=== PATIENT | male | born 1995 | race American Indian/Alaskan Native ===

== ENCOUNTER 2020-07-23 07:15 | Emergency (ER) | payer SELFPAY ==
[2020-07-23] MEDS ORDERED: PHENYTOIN 100 MG CAPSULE.ER PO ONE ×2 (07:30→09:00)
--- NOTE | 2020-07-23 07:36 | Emergency Department Report ---
HPI - General Chief Complaint: Seizure Time Seen by Provider: 07/23/20 07:22 - HPI HPI: This is a 25-year-old -[place] male presents to the emergency department via EMS from home with a complaint of having a seizure this morning and being out of his seizure and bipolar disorder medications. Initially he says that he has been out of the medications for the past 2 to 3 months, but then later corrects himself and says that it has been a few weeks. He usually follows up with [facility] and has never been to our facility previously. At this time he just complains of a mild headache. He denies any tobacco or illicit drug use. He has not taken anything for his symptoms prior to presentation. Despite being out of his bipolar medication the patient denies any current hallucinations or any suicidal homicidal ideations. The patient does not remember the doses of his medications that he takes. He says that he takes Dilantin for his seizures. The headache is currently 3 out of 10 in intensity and generalized. He denies any fever, vision change, slurred speech, neck stiffness, numbness or paresthesias, localized weakness, or any neurological deficits. ED Past Medical Hx - Past Medical History Previous Medical History?: Yes Hx Seizures: Yes Hx Psychiatric Treatment: Yes (bipolar) Hx Asthma: Yes - Social History Smoking Status: Current Every Day Smoker - Medications Home Medications: Home Medications Medication Instructions Recorded Confirmed Last Taken Type Phenytoin [Dilantin] 100 mg PO Q8HR #90 capsule 07/23/20 Unknown Rx ED Review of Systems ROS: Stated complaint: HEADACHE/FALL Other details as noted in HPI Comment: All other systems reviewed and negative Constitutional: denies: chills, fever Eyes: denies: eye pain, vision change ENT: denies: ear pain, throat pain Respiratory: denies: cough, shortness of breath Cardiovascular: denies: chest pain, palpitations Gastrointestinal: denies: abdominal pain, vomiting Genitourinary: denies: dysuria, discharge Musculoskeletal: denies: back pain, arthralgia Skin: denies: rash, lesions Neurological: headache. denies: numbness, paresthesias Physical Exam - Physical Exam Physical Exam: GENERAL: The patient is well-developed well-nourished. HENT: Normocephalic. Atraumatic. Patient has moist mucous membranes. EYES: Extraocular motions are intact. No nystagmus. NECK: Supple. Trachea is midline. CHEST/LUNGS: Clear to auscultation. There is no respiratory distress noted. HEART/CARDIOVASCULAR: Regular. There is no tachycardia. There is no murmur. ABDOMEN: Abdomen is soft, nontender. Patient has normal bowel sounds. There is no abdominal distention. SKIN: Skin is warm and dry. NEURO: The patient is awake, alert, and oriented. The patient is cooperative. The patient has no focal neurologic deficits. Normal speech. Cranial nerves II through XII grossly intact. No facial asymmetry. MUSCULOSKELETAL: There is no tenderness or deformity. There is no limitation range of motion. ED Medical Decision Making - Lab Data Result diagrams: 07/23/20 08:39 07/23/20 08:39 Lab Results 07/23/20 07/23/20 07/23/20 Range/Units 08:39 08:39 08:39 WBC 5.6 (4.5-11.0) K/mm3 RBC 4.65 (3.65-5.03) M/mm3 Hgb 15.5 H (11.8-15.2) gm/dl Hct 43.8 (35.5-45.6) % MCV 94 (84-94) fl MCH 33 H (28-32) pg MCHC 36 H (32-34) % RDW 13.3 (13.2-15.2) % Plt Count 190 (140-440) K/mm3 Lymph % (Auto) 50.0 H (13.4-35.0) % Powell % (Auto) 9.9 H (0.0-7.3) % Eos % (Auto) 0.2 (0.0-4.3) % Baso % (Auto) 0.7 (0.0-1.8) % Lymph # (Auto) 2.8 (1.2-5.4) K/mm3 Powell # (Auto) 0.6 (0.0-0.8) K/mm3 Eos # (Auto) 0.0 (0.0-0.4) K/mm3 Baso # (Auto) 0.0 (0.0-0.1) K/mm3 Seg Neutrophils % 39.2 L (40.0-70.0) % Seg Neutrophils # 2.2 (1.8-7.7) K/mm3 Sodium 139 (137-145) mmol/L Potassium 3.7 (3.6-5.0) mmol/L Chloride 102.6 (98-107) mmol/L Carbon Dioxide 26 (22-30) mmol/L Anion Gap 14 mmol/L BUN 11 (9-20) mg/dL Creatinine 1.0 (0.8-1.3) mg/dL Estimated GFR > 60 ml/min BUN/Creatinine Ratio 11 % Glucose 81 (75-100) mg/dL Calcium 9.3 (8.4-10.2) mg/dL Total Bilirubin 0.30 (0.1-1.2) mg/dL AST 52 H (5-40) units/L ALT 45 (7-56) units/L Alkaline Phosphatase 109 (35-129) units/L Total Protein 7.4 (6.3-8.2) g/dL Albumin 3.9 (3.9-5) g/dL Albumin/Globulin Ratio 1.1 % Phenytoin 1.2 L (10.0-20.0) ug/mL Plasma/Serum Alcohol (0-0.07) % 05/06/ Range/Units 08:39 WBC (4.5-11.0) K/mm3 RBC (3.65-5.03) M/mm3 Hgb (11.8-15.2) gm/dl Hct (35.5-45.6) % MCV (84-94) fl MCH (28-32) pg MCHC (32-34) % RDW (13.2-15.2) % Plt Count (140-440) K/mm3 Lymph % (Auto) (13.4-35.0) % Powell % (Auto) (0.0-7.3) % Eos % (Auto) (0.0-4.3) % Baso % (Auto) (0.0-1.8) % Lymph # (Auto) (1.2-5.4) K/mm3 Powell # (Auto) (0.0-0.8) K/mm3 Eos # (Auto) (0.0-0.4) K/mm3 Baso # (Auto) (0.0-0.1) K/mm3 Seg Neutrophils % (40.0-70.0) % Seg Neutrophils # (1.8-7.7) K/mm3 Sodium (137-145) mmol/L Potassium (3.6-5.0) mmol/L Chloride (98-107) mmol/L Carbon Dioxide (22-30) mmol/L Anion Gap mmol/L BUN (9-20) mg/dL Creatinine (0.8-1.3) mg/dL Estimated GFR ml/min BUN/Creatinine Ratio % Glucose (75-100) mg/dL Calcium (8.4-10.2) mg/dL Total Bilirubin (0.1-1.2) mg/dL AST (5-40) units/L ALT (7-56) units/L Alkaline Phosphatase (35-129) units/L Total Protein (6.3-8.2) g/dL Albumin (3.9-5) g/dL Albumin/Globulin Ratio % Phenytoin (10.0-20.0) ug/mL Plasma/Serum Alcohol < 0.01 (0-0.07) % - Medical Decision Making This patient presents to the emergency department saying that he had a seizure earlier this morning. He is asking for a refill of both his seizure medications, as well as his psychiatric medications. At the time of my examination the patient is awake, alert, oriented. He does not have any focal, motor or sensory deficits and his cranial nerves are intact. He was given a dose of Dilantin/phenytoin in the emergency department. Not surprisingly, given the medication noncompliance, his phenytoin level is very low when checked. The rest of his labs are unremarkable including CBC and metabolic panel. The patient was reevaluated multiple times over multiple hours and there has been no further seizure-like activity and the patient has remained stable. He will be discharged home with a prescription for Dilantin and outpatient referral for primary care and neurology. As the patient has been without his psychiatric medications for at least a few weeks, if not a few months, as well as the fact that the patient cannot remember the doses of his medications, I do not feel comfortable blindly filling his psychiatric medications at this time. He does not endorse any hallucinations, suicidal or homicidal ideations, and does not appear to require a 1013 or inpatient stabilization. He was given an outpatient referral for the [facility]. He will return to the emergency department with any worsening of his symptoms or with any acute distress. Critical Care Time: No Critical care attestation.: If time is entered above; I have spent that time in minutes in the direct care of this critically ill patient, excluding procedure time. ED Disposition Clinical Impression: Seizure, Encounter for medication refill, History of bipolar disorder Disposition: TO HOME OR SELFCARE Is pt being admited?: No Condition: Stable Instructions: Seizure, Adult Additional Instructions: Please follow-up with a primary care physician in the next few days. I am giving you multiple referrals for local primary care physicians and a clinic. I am giving you a referral for the [facility]. They take walk-in appointments. Please follow-up with them, or a psychiatrist, regarding your history of bipolar disorder and for your medications. I am giving you a referral for a local neurologist, Dr. Clement, to follow-up regarding your history of seizures. I am restarting you on Dilantin. Return to the emergency department with any worsening of your symptoms, new or concerning symptoms not addressed during this current emergency department visit, or with any acute distress. Because of your seizures, you are unable to drive or operate a vehicle or any heavy machinery for at least 6 months or until cleared by a neurologist. Please avoid any alcohol, illicit drug use, or any excessive caffeine use, as this can lower your seizure threshold. Please try to get 8 hours of uninterrupted sleep per night. Prescriptions: Phenytoin [Dilantin] 100 mg PO Q8HR #90 capsule Referrals: VASU VASQUEZ MD [Primary Care Provider] - 3-5 Days MICHELLE ORELLANA MD [Staff Physician] - 3-5 Days MED CLEMENT MD [Referring] - 3-5 Days [facility] [Provider Group] - 3-5 Days [facility] [Outside] - 3-5 Days Time of Disposition: 10:39
[2020-07-23 09:14] LABS: Basophils % (Auto) 0.7 % (0.0-1.8); Eosinophils % (Auto) 0.2 % (0.0-4.3); Hematocrit 43.8 % (35.5-45.6); Hemoglobin 15.5 gm/dl (11.8-15.2); Lymphocytes # (Auto) 2.8 K/mm3 (1.2-5.4); Mean Corpuscular HGB Conc 36 % (32-34); Mean Corpuscular Volume 94 fl (84-94); Monocytes # (Auto) 0.6 K/mm3 (0.0-0.8); Monocytes % (Auto) 9.9 % (0.0-7.3); Platelet Count 190 K/mm3 (140-440); Red Blood Count 4.65 M/mm3 (3.65-5.03); Red Cell Distribution Width 13.3 % (13.2-15.2)
[2020-07-23 09:35] LABS: Alanine Aminotransferase 45 units/L (7-56); Albumin 3.9 g/dL (3.9-5); BUN/Creatinine Ratio 11; Blood Urea Nitrogen 11 mg/dL (9-20); Calcium 9.3 mg/dL (8.4-10.2); Hemolysis Index 13
[2020-07-23 11:46] VITALS: BP 122/73
== END 2020-07-23 11:46 | disposition home or self-care (01) ==
LOC: ED 07:15
DX: R56.9 Unspecified convulsions (principal); F31.9 Bipolar disorder, unspecified; Z76.0 Encounter for issue of repeat prescription; J45.909 Unspecified asthma, uncomplicated; F17.200 Nicotine dependence, unspecified, uncomplicated; Z79.899 Other long term (current) drug therapy
CPT/HCPCS: 36415; 80053; 80185; 80320; 85025; G0480